=== PATIENT | male | born 1960 | race Caucasian/White ===

== ENCOUNTER 2025-07-29 09:24 | Outpatient (CLI) | payer OTHER ==
--- NOTE | 2025-07-29 10:34 | RADIOLOGY REPORT ---
CLINICAL INDICATION: RIGHT AND LEFT BONE SPUR TECHNIQUE: 3 radiographic views of the left foot were obtained. Comparison: DI FOOT, COMPLETE (3VW MIN) on DOS: 07/29/25 FINDINGS/IMPRESSION: There is no evidence of acute fracture or dislocation. Small plantar and posterior calcaneal enthesophytes. The visualized joint space is well maintained. The alignment is anatomical. There is no radiopaque foreign body.
--- NOTE | 2025-07-29 10:36 | RADIOLOGY REPORT ---
CLINICAL INDICATION: RIGHT AND LEFT BONE SPUR TECHNIQUE: 3 radiographic views of the right foot were obtained. Comparison: DI FOOT, COMPLETE (3VW MIN) on DOS: 07/29/25 FINDINGS/IMPRESSION: There is no evidence of acute fracture or dislocation. 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 Small posterior calcaneal enthesophyte.
== END 2025-07-29 23:59 | disposition home or self-care (01) ==
LOC: RAD 09:24
PROVIDERS: ATTEND Chiropractor
DX: M19.071 Primary osteoarthritis, right ankle and foot (principal); M77.32 Calcaneal spur, left foot; M77.31 Calcaneal spur, right foot
CPT/HCPCS: 73630